=== PATIENT | female | born 1970 | race Caucasian/White ===

== ENCOUNTER 2020-12-30 07:47 | Emergency (ER) | payer OTHER ==
[~2020-12-30 07:47] MED LIST: CLARITIN10 MG PO; METFORMIN HCL500 MG PO; TOPROL XL 50 MG50 MG PO; ZOLOFT25 MG PO
[2020-12-30 09:06] LABS: BASOPHIL 0.2 % (0-2); EOSINOPHIL 1.4 % (0-5); HCT 44.6 % (37.0-47.0); HGB 14.4 g/dl (12.5-16.0); LYMPHOCYTE 19.4 % (15-48); MCH 30.8 pg (25.0-31.0); MCHC 32.3 g/dL (32.0-36.0); MCV 95.5 fL (78.0-100.0); MONOCYTE 6.2 % (0-12); NEUTROPHIL 72.4 % (41-80); NRBC 0; PLT 181 K/uL (150-400); RBC 4.67 M/uL (4.20-5.40); RDW 13.2 % (11.5-14.0); WBC 8.4 K/uL (4.0-10.5)
[2020-12-30 09:42] LABS: ALBUMIN 3.6 g/dL (3.4-5.0); BILIRUBIN - TOTAL 0.2 mg/dL (0.2-1.0); CREATININE 0.75 mg/dL (0.51-0.95); GLOBULIN (CALCULATION) 3.1 g/dL; POTASSIUM 4.3 mmol/L (3.5-5.1); TOTAL PROTEIN 6.7 g/dL (6.4-8.2)
== END 2020-12-30 11:59 | disposition home or self-care (01) ==
LOC: FER 07:47
PROVIDERS: Emergency Medicine
DX: R55 Syncope and collapse (principal); F17.200 Nicotine dependence, unspecified, uncomplicated
CPT/HCPCS: 36415; 70450; 71045; 72125; 80053; 83735; 84484; 85025; 93005; J1885; J2405

== ENCOUNTER 2022-08-06 16:04 | Emergency (ER) | payer OTHER ==
[~2022-08-06 16:04] MED LIST changes: +LAMOTRIGINE100 MG PO
== END 2022-08-06 18:41 | disposition home or self-care (01) ==
LOC: FER 16:04
DX: S13.4XXA Sprain of ligaments of cervical spine, initial encounter (principal); Z28.310 Unvaccinated for COVID-19; V49.40XA Driver injured in collision with unspecified motor vehicles in traffic accident, initial encounter
CPT/HCPCS: 70450; 72125